=== PATIENT | female | born 1960 | race African-American/Black ===

== ENCOUNTER 2021-09-05 16:10 | Emergency (ER) | payer SELFPAY ==
[~2021-09-05] VITALS: Ht 167.6 cm; Wt 86.0 kg
[2021-09-05] MEDS ORDERED: FAMOTIDINE 20 MG TABLET. PO ONE (18:15)
[2021-09-05] MEDS ORDERED: ACETAMINOPHEN 325 MG TABLET. PO ONE (18:15)
--- NOTE | 2021-09-05 18:31 | PHYS DOC ---
Past Medical History Additional Past Medical Histor: neuropathy, "spinal injury" Past Surgical History: No Surgical History Smoking Status: Current Every Day Smoker Additional Information: 6 cigarettes/day Alcohol Use: Rarely General Adult EDM: Chief Complaint: MECHANICAL FALL HPI: HPI: Patient is a 60 year old female who presents with left knee pain after slipping on ice today. Patient states that she slipped on ice twice today. The first time, she caught herself, however the second time she did fall onto her left knee. Patient was attempting to sit in the lobby of [employer], but it was closed. Her falls occurred on the way to and from the bus stop. She denies any new issues ambulating, but states believes her neuropathy has been worsening over the past several weeks. Patient reports she had a recent peanut butter cup out of the vending machine while she was in the waiting room, and now has some acid reflux as a result. Patient denies headache, paresthesias, focal weakness, chest pain, palpitations. She has no other complaints at this time. Review of Systems: Review of Systems: ROS negative or noncontributory except as mentioned in HPI. Heart Score: C/O Chest Pain: No Current Medications: Current Medications Medications (Trade) Dose Ordered Sig/Cata Start Time Stop Time Status Last Admin Dose Admin Acetaminophen (Tylenol) 650 mg 1X ONCE 09/05/21 18:15 09/05/21 18:16 DC Famotidine (Pepcid) 20 mg 1X ONCE 09/05/21 18:15 09/05/21 18:16 DC Allergies: Allergies: Allergies Coded Allergies Type Severity Reaction Last Updated Verified milk Allergy Mild constipated 09/05/21 Yes aspirin Allergy Unknown gi bleed 09/05/21 Yes Physical Exam: PE: Constitutional: Well developed, well nourished, disheveled appearance, no acute distress, non-toxic appearance. HENT: Normocephalic, atraumatic, bilateral external ears normal, nose normal. Eyes: EOMI, conjunctiva normal, no discharge. Neck: Normal range of motion, no stridor. Skin: Warm, dry, no erythema, no rash, no abrasion, no laceration. Back: No step-off, no midline tenderness, no paraspinal muscle spasm. Extremities: Left knee slightly tender over the superior lateral aspect, no swelling, active range of motion intact. Extremities otherwise no tenderness, no cyanosis, no clubbing, ROM intact, no edema. Neurologic: Alert and oriented x4, no focal deficits noted. Current Patient Data: Vital Signs: Vital Signs Date Time Temp Pulse Resp B/P (MAP) Pulse Ox O2 Delivery O2 Flow Rate FiO2 09/05/21 18:42 103 16 184/99 (127) 100 Room Air 09/05/21 17:49 96 159/106 (123) 100 Room Air 09/05/21 17:15 100 12 140/97 (111) 100 Room Air 09/05/21 16:18 97.8 97 20 163/99 (120) 99 Room Air 97.8 Course & Med Decision Making: Course & Med Decision Making Pertinent Labs and Imaging studies reviewed. (See chart for details) Patient presents to the emergency room requesting medication for her left knee pain as well as something for the acid reflux she developed after eating [employer] peanut butter cup. At this Time, she rates her knee pain as mild and does not wish to have any x-ray images. Patient will be provided with Pepcid, Tylenol as well as a meal tray. Patient reports she is feeling much better. She will be discharged from the department in improved condition. Patient understands and is agreeable to discharge plan. [employer] Disclaimer: [employer] Disclaimer: This electronic medical record was generated, in whole or in part, using a voice recognition dictation system. Departure Departure Impression: Primary Impression: Contusion of left knee, initial encounter Additional Impression: Mild acid reflux Disposition: 01 HOME / SELF CARE / HOMELESS Condition: IMPROVED Referrals: NO PCP (PCP) Patient Instructions: RICE - Routine Care for Injuries, [id number] Additional Instructions: EMERGENCY DEPARTMENT GENERAL DISCHARGE INSTRUCTIONS Thank you for coming to [facility] Emergency Department (ED) today and trusting us with you care. We trust that you had a positive experience in our Emergency Department. If you wish to speak to the department management, you may call the director at . YOUR FOLLOW UP INSTRUCTIONS ARE FOLLOWS: 1. Follow up with your primary care doctor. If you do not have a primary doctor, please ask for a resource list of physicians or clinics that may be able to assist you with follow up care. Your blood pressure elevation may require management with medication. Your primary doctor can further evaluate and manage your blood pressure. If your neuropathy is worsening, you'll need to see a specialist. Visit the doctor you see for back pain for further evaluation and treatment. 2. The emergency provider has interpreted your imaging studies, if any were ordered. The radiology publishing specialist also reviewed them. If there is a change in the findings, you will be notified in 48 hours when at all possible. 3. If a lab test or culture has been done, your results will be reviewed and you will be notified if you need a change in treatment. 4. Follow instructions verbalized to you and refer to the printouts if needed. ADDITIONAL INSTRUCTIONS AND INFORMATION: 1. Your care today has been supervised by a physician who is specially trained in emergency care. Many problems require more than one evaluation for a complete diagnosis and treatment. We recommend that you schedule your follow up appointment as recommended to ensure complete treatment of you illness or injury. If you are unable to obtain follow up care and continue to have a problem, or if your condition worsens, we recommend that you return to the ED. 2. We are not able to safely determine your condition over the phone nor are we able to give sound medical advice over the phone. For these safety reasons, if you call for medical advice we will ask you to come to the ED for further evaluation. 3. If you have any questions regarding these discharge instructions please call the ED at . SAFETY INFORMATION: In the interest of safety, wellness, and injury prevention; we encourage you to wear your seat belt, if you smoke; quite smoking, and we encourage family to use a protective helmet for bicycling and other sporting events that present an increased risk for head injury. IF YOUR SYMPTOMS WORSEN OR NEW SYMPTOMS DEVELOP, OR YOU HAVE CONCERNS ABOUT YOUR CONDITION; OR IF YOUR CONDITION WORSENS WHILE YOU ARE WAITING FOR YOUR FOLLOW UP APPOINTMENT; EITHER CONTACT YOUR PRIMARY CARE DOCTOR, THE PHYSICIAN WHOSE NAME AND NUMBER YOU WERE GIVEN, OR RETURN TO THE ED IMMEDIATELY. MELANIE GUTIERREZ Sep 05, 2021 18:31
[2021-09-05 18:42] VITALS: BP 184/99
== END 2021-09-05 18:47 | disposition home or self-care (01) ==
LOC: ER 16:10
DX: M25.562 Pain in left knee (principal); G89.11 Acute pain due to trauma; K21.9 Gastro-esophageal reflux disease without esophagitis; F17.210 Nicotine dependence, cigarettes, uncomplicated; Z88.6 Allergy status to analgesic agent; Z91.011 Allergy to milk products; W00.0XXA Fall on same level due to ice and snow, initial encounter; Y93.89 Activity, other specified; Y92.89 Other specified places as the place of occurrence of the external cause; Y99.8 Other external cause status
CPT/HCPCS: 99283